=== PATIENT | female | born 1955 | race Caucasian/White ===

== ENCOUNTER 2018-01-12 05:49 | Observation (INO) | payer OTHER ==
[2018-01-12 06:56] LABS: ADD MAN DIFF? NO
[2018-01-12 06:58] LABS: WHITE BLOOD COUNT 5.7 10^3/ul (4.8-10.8)
[2018-01-12 06:58] LABS: BASOPHILS % 0.3 % (0.0-2.0); EOSINOPHILS # 0.1 10^3/ul (0.0-0.5); EOSINOPHILS % 1.7 % (0.0-7.0); HEMATOCRIT 40.1 % (37.0-47.0); HEMOGLOBIN 13.4 g/dl (12.0-16.0); LYMPHOCYTES # 2.2 10^3/ul (0.8-2.9); LYMPHOCYTES % 37.6 % (15.0-51.0); MEAN CORPUSCULAR HEMOGLOBIN 29.4 pg (29.0-33.0); MEAN CORPUSCULAR HGB CONC 33.4 g/dl (32.0-37.0); MEAN CORPUSCULAR VOLUME 87.9 fl (82.0-101.0); MEAN PLATELET VOLUME 10.2 fl (7.4-10.4); MONOCYTE # 0.6 10^3/ul (0.3-0.9); MONOCYTES % 10.8 % (0.0-11.0); NEUTROPHIL # 2.8 10^3/ul (1.6-7.5); NEUTROPHILS % 49.4 % (39.0-77.0); PLATELET COUNT 221 10^3/UL (140-415); RED BLOOD COUNT 4.56 10^6/ul (4.20-5.40); RED CELL DISTRIBUTION WIDTH 13.4 % (11.5-14.5)
[2018-01-12] MEDS: ASPIRIN 81 MG TAB PO (07:15)
[2018-01-12 07:18] LABS: ALANINE AMINOTRANSFERASE 24 IU/L (13-69); ALBUMIN 4.2 g/dl (3.3-4.9); ALBUMIN/GLOBULIN RATIO 1.16; ALKALINE PHOSPHATASE 84 IU/L (42-121); ANION GAP 14 (8-16); ASPARTATE AMINO TRANSFERASE 24 IU/L (15-46); BILIRUBIN,INDIRECT 0.3 mg/dl (0-1.1); BILIRUBIN,TOTAL 0.3 mg/dl (0.2-1.3); BLOOD UREA NITROGEN 13 mg/dl (7-20); CALCIUM 9.1 mg/dl (8.4-10.2); CARBON DIOXIDE 28 mmol/L (21-31); CHLORIDE 104 mmol/L (97-110); CREATININE 0.59 mg/dl (0.44-1.00); GLUCOSE 95 mg/dl (70-220); LIPASE 68 U/L (23-300); POTASSIUM 3.6 mmol/L (3.5-5.1); SODIUM 142 mmol/L (135-144); TOTAL PROTEIN 7.8 g/dl (6.1-8.1)
[2018-01-12 07:29] LABS: B-TYPE NATRIURETIC PEPTIDE 46 PG/ML (0-125); TROPONIN-I < 0.012 ng/ml (0.000-0.120)
[2018-01-12 07:32] LABS: ADD UMIC NO; UR ASCORBIC ACID NEGATIVE (NEGATIVE); UR BACTERIA FEW /HPF (NONE SEEN); UR BILIRUBIN (Dip) NEGATIVE (NEGATIVE); UR BLOOD (Dip) NEGATIVE (NEGATIVE); UR CLARITY SLIGHTLY CLOUDY (CLEAR); UR COLOR YELLOW (YELLOW); UR GLUCOSE (Dip) NEGATIVE (NEGATIVE); UR KETONES (Dip) NEGATIVE (NEGATIVE); UR LEUKOCYTE ESTERASE (Dip) NEGATIVE Leu/ul (NEGATIVE); UR MUCUS FEW /HPF (NONE SEEN); UR NITRITE (Dip) NEGATIVE (NEGATIVE); UR RBC 0 /HPF (0-5); UR SPECIFIC GRAVITY (Dip) 1.017 (1.003-1.030); UR SQUAMOUS EPITHELIAL CELL FEW /HPF (FEW); UR TOTAL PROTEIN (Dip) NEGATIVE (NEGATIVE); UR UROBILINOGEN (Dip) NEGATIVE (NEGATIVE); UR WBC 2 /HPF (0-5)
[2018-01-12] MEDS ORDERED: NITROGLYCERIN (SL) 0.4 MG TAB SL (11:30)
[2018-01-12] MEDS ORDERED: ALBUTEROL/IPRATROPIUM (NEB) 3 ML AMP HHN (11:30)
[2018-01-12] MEDS ORDERED: ONDANSETRON 4 MG INJ IV (11:30)
[2018-01-12] MEDS ORDERED: NACL 0.9% 3 ML SYG IV (11:30)
[2018-01-12] MEDS ORDERED: morphine 2 MG INJ IV (11:30)
[2018-01-12] MEDS: FAMOTIDINE 20 MG TAB PO ×2 (12:18→20:34)
[2018-01-12] MEDS: ACETAMINOPHEN 325 MG TAB PO (12:19)
[2018-01-12 12:54] LABS: CREATINE KINASE 26 IU/L (23-200)
[2018-01-12 13:07] LABS: CK INDEX 0.9; CK-MB 0.23 ng/ml (0.0-2.4); TROPONIN-I < 0.012 ng/ml (0.000-0.120)
[2018-01-12] MEDS: IBUPROFEN 400 MG TAB PO ×2 (15:34→18:00)
[2018-01-12] MEDS: GUAIFENESIN/DM (SR) TAB PO (16:42)
[2018-01-12 18:23] LABS: CREATINE KINASE 33 IU/L (23-200)
[2018-01-12 18:37] LABS: CK INDEX 1.4; CK-MB 0.45 ng/ml (0.0-2.4); TROPONIN-I < 0.012 ng/ml (0.000-0.120)
[2018-01-13] MEDS: CEPASTAT LOZENGE MT ×4 (01:33→15:46)
[2018-01-13] MEDS: IBUPROFEN 400 MG TAB PO ×5 (05:28→23:21)
[2018-01-13 06:47] LABS: ADD MAN DIFF? NO
[2018-01-13 06:55] LABS: BASOPHILS % 0.6 % (0.0-2.0); EOSINOPHILS # 0.3 10^3/ul (0.0-0.5); HEMATOCRIT 39.1 % (37.0-47.0); HEMOGLOBIN 12.9 g/dl (12.0-16.0); LYMPHOCYTES # 2.2 10^3/ul (0.8-2.9); LYMPHOCYTES % 40.3 % (15.0-51.0); MEAN CORPUSCULAR HEMOGLOBIN 29.1 pg (29.0-33.0); MEAN CORPUSCULAR VOLUME 88.1 fl (82.0-101.0); MEAN PLATELET VOLUME 10.2 fl (7.4-10.4); MONOCYTE # 0.6 10^3/ul (0.3-0.9); MONOCYTES % 10.4 % (0.0-11.0); NEUTROPHIL # 2.3 10^3/ul (1.6-7.5); NEUTROPHILS % 43.5 % (39.0-77.0); PLATELET COUNT 230 10^3/UL (140-415); RED BLOOD COUNT 4.44 10^6/ul (4.20-5.40); RED CELL DISTRIBUTION WIDTH 13.3 % (11.5-14.5)
[2018-01-13 06:55] LABS: WHITE BLOOD COUNT 5.4 10^3/ul (4.8-10.8)
[2018-01-13 07:04] LABS: HEMOGLOBIN A1C 5.8 % (0-5.9)
[2018-01-13 07:24] LABS: ANION GAP 11 (8-16); BLOOD UREA NITROGEN 14 mg/dl (7-20); CALCIUM 9.3 mg/dl (8.4-10.2); CARBON DIOXIDE 28 mmol/L (21-31); CHLORIDE 105 mmol/L (97-110); CHOL/HDL RATIO 2.6 RATIO; CHOLESTEROL 180 mg/dl (100-200); CREATININE 0.62 mg/dl (0.44-1.00); GLUCOSE 86 mg/dl (70-220); HDL CHOLESTEROL 68 mg/dl (35-98); LDL CHOLESTEROL,CALCULATED 97 mg/dl; MAGNESIUM 1.9 mg/dl (1.7-2.5); POTASSIUM 4.4 mmol/L (3.5-5.1); SODIUM 140 mmol/L (135-144); TRIGLYCERIDES 77 mg/dl (0-149)
[2018-01-13] MEDS: LOSARTAN 25 MG TAB PO (08:11)
[2018-01-13] MEDS: GUAIFENESIN/DM (SR) TAB PO (08:11)
[2018-01-13] MEDS: FAMOTIDINE 20 MG TAB PO ×2 (08:11→20:48)
[2018-01-13] MEDS: ASPIRIN 81 MG TAB PO (08:11)
[2018-01-13] MEDS: AMOXICILLIN 500 MG CAP PO ×2 (18:32→20:48)
[2018-01-14] MEDS: IBUPROFEN 400 MG TAB PO (05:41)
[2018-01-14] MEDS: GUAIFENESIN/DM (SR) TAB PO (09:36)
[2018-01-14] MEDS: LOSARTAN 25 MG TAB PO (09:37)
[2018-01-14] MEDS: AMOXICILLIN 500 MG CAP PO (09:37)
[2018-01-14] MEDS: ASPIRIN 81 MG TAB PO (09:37)
[2018-01-14] MEDS: FAMOTIDINE 20 MG TAB PO (09:37)
== END 2018-01-14 14:18 | disposition home or self-care (01) ==
LOC: E/R 05:49 → TEL 08:12
DX: R07.9 Chest pain, unspecified (principal); J02.0 Streptococcal pharyngitis; I10 Essential (primary) hypertension
CPT/HCPCS: 36415; 71045; 80048; 80053; 80061; 81001; 81003; 82550; 82553; 83036; 83690; 83735; 83880; 84100; 84443; 84484; 85025; 87400; 87880; 92610; 93005; 93306; 99285-25; G0378

== ENCOUNTER 2019-01-26 12:06 | Inpatient (IN) | payer OTHER ==
[2019-01-26 12:34] LABS: ADD MAN DIFF? NO; BASOPHILS % 0.5 % (0.0-2.0); EOSINOPHILS % 0.2 % (0.0-7.0); HEMATOCRIT 38.1 % (37.0-47.0); HEMOGLOBIN 12.6 g/dl (12.0-16.0); LYMPHOCYTES # 2.3 10^3/ul (0.8-2.9); LYMPHOCYTES % 26.7 % (15.0-51.0); MEAN CORPUSCULAR HEMOGLOBIN 29.3 pg (29.0-33.0); MEAN CORPUSCULAR HGB CONC 33.1 g/dl (32.0-37.0); MEAN CORPUSCULAR VOLUME 88.6 fl (82.0-101.0); MEAN PLATELET VOLUME 9.8 fl (7.4-10.4); MONOCYTE # 0.5 10^3/ul (0.3-0.9); MONOCYTES % 5.3 % (0.0-11.0); NEUTROPHIL # 5.7 10^3/ul (1.6-7.5); NEUTROPHILS % 67.1 % (39.0-77.0); PLATELET COUNT 262 10^3/UL (140-415); RED CELL DISTRIBUTION WIDTH 13.4 % (11.5-14.5)
[2019-01-26 12:34] LABS: WHITE BLOOD COUNT 8.5 10^3/ul (4.8-10.8)
[2019-01-26] MEDS: IOHEXOL 350MG/ML 50 ML BTL (12:45)
[2019-01-26] MEDS: IOHEXOL 100 ML (12:45)
[2019-01-26] MEDS: SOD CHLORIDE 0.9% 100 ML (12:45)
[2019-01-26 12:46] LABS: ANION GAP 10 (5-13); BLOOD UREA NITROGEN 15 mg/dl (7-20); CALCIUM 9.4 mg/dl (8.4-10.2); CARBON DIOXIDE 23 mmol/L (21-31); CHLORIDE 104 mmol/L (97-110); CHOL/HDL RATIO 2.4 RATIO; CHOLESTEROL 234 mg/dl (100-200); CREATINE KINASE 50 IU/L (23-200); CREATININE 0.53 mg/dl (0.44-1.00); Estimated GFR > 60 mL/min (>60); GLUCOSE 137 mg/dl (70-220); HDL CHOLESTEROL 94 mg/dl (35-98); LDL CHOLESTEROL,CALCULATED 123 mg/dl; POTASSIUM 3.6 mmol/L (3.5-5.1); SODIUM 137 mmol/L (135-144); TRIGLYCERIDES 85 mg/dl (0-149)
[2019-01-26 12:49] LABS: HEMOGLOBIN A1C 5.4 % (0-5.9)
[2019-01-26 12:50] LABS: INR 0.89; PROTIME 12.1 Sec (11.9-14.9); PT RATIO 0.9
[2019-01-26 12:51] LABS: PARTIAL THROMBOPLASTIN TIME 22.5 Sec (23.0-35.0)
[2019-01-26 12:56] LABS: ETHANOL < 10.0 mg/dl (0-0)
[2019-01-26 12:58] LABS: CK INDEX 2.1; CK-MB 1.03 ng/ml (0.0-2.4); TROPONIN-I < 0.012 ng/ml (0.000-0.120)
[2019-01-26 14:04] LABS: LIPASE 43 U/L (23-300)
[2019-01-26 14:12] LABS: AMPHETAMINE/METHAMPHETAMINE Negative (NEGATIVE); BARBITURATES Negative (NEGATIVE); BENZODIAZEPINES Negative (NEGATIVE); CANNABINOIDS Negative (NEGATIVE); COCAINE Negative (NEGATIVE); OPIATES Negative (NEGATIVE)
[2019-01-26 14:20] LABS: ADD UMIC NO; UR ASCORBIC ACID NEGATIVE (NEGATIVE); UR BILIRUBIN (Dip) NEGATIVE (NEGATIVE); UR BLOOD (Dip) NEGATIVE (NEGATIVE); UR CLARITY CLEAR (CLEAR); UR COLOR STRAW (YELLOW); UR GLUCOSE (Dip) NEGATIVE (NEGATIVE); UR KETONES (Dip) 1+ mg/dL (NEGATIVE); UR LEUKOCYTE ESTERASE (Dip) NEGATIVE Leu/ul (NEGATIVE); UR NITRITE (Dip) NEGATIVE (NEGATIVE); UR SPECIFIC GRAVITY (Dip) 1.054 (1.003-1.030); UR TOTAL PROTEIN (Dip) NEGATIVE (NEGATIVE); UR UROBILINOGEN (Dip) NEGATIVE (NEGATIVE)
[2019-01-26] MEDS ORDERED: HYDROCODONE/APAP (5/325) TAB PO (16:30)
[2019-01-26] MEDS ORDERED: DOCUSATE SODIUM 100 MG CAP PO (16:30)
[2019-01-26] MEDS ORDERED: ACETAMINOPHEN 325 MG TAB PO ×2 (16:30→17:00)
[2019-01-26] MEDS ORDERED: morphine 2 MG INJ IV (16:30)
[2019-01-26] MEDS ORDERED: NACL 0.9% 3 ML SYG IV (16:30)
[2019-01-26] MEDS ORDERED: ONDANSETRON 4 MG INJ IV (17:00)
[2019-01-26 18:07] LABS: CREATINE KINASE 50 IU/L (23-200)
[2019-01-26 18:21] LABS: CK INDEX 1.5; CK-MB 0.75 ng/ml (0.0-2.4); TROPONIN-I < 0.012 ng/ml (0.000-0.120)
[2019-01-26] MEDS: ONDANSETRON 4 MG INJ IV (21:00)
[2019-01-26] MEDS: FAMOTIDINE 20 MG TAB PO (21:00)
[2019-01-26] MEDS: HEPARIN 5,000 UNIT/1 ML VIAL SC (21:31)
[2019-01-26 22:45] LABS: CREATINE KINASE 47 IU/L (23-200)
[2019-01-26 22:58] LABS: CK INDEX 1.7; CK-MB 0.81 ng/ml (0.0-2.4); TROPONIN-I < 0.012 ng/ml (0.000-0.120)
[2019-01-27 06:51] LABS: ADD MAN DIFF? NO
[2019-01-27 07:01] LABS: BASOPHILS % 0.7 % (0.0-2.0); EOSINOPHILS % 0.7 % (0.0-7.0); HEMATOCRIT 38.3 % (37.0-47.0); HEMOGLOBIN 12.7 g/dl (12.0-16.0); LYMPHOCYTES # 2.1 10^3/ul (0.8-2.9); LYMPHOCYTES % 35.2 % (15.0-51.0); MEAN CORPUSCULAR HEMOGLOBIN 29.4 pg (29.0-33.0); MEAN CORPUSCULAR HGB CONC 33.2 g/dl (32.0-37.0); MEAN CORPUSCULAR VOLUME 88.7 fl (82.0-101.0); MEAN PLATELET VOLUME 9.8 fl (7.4-10.4); MONOCYTE # 0.4 10^3/ul (0.3-0.9); MONOCYTES % 6.4 % (0.0-11.0); NEUTROPHIL # 3.5 10^3/ul (1.6-7.5); NEUTROPHILS % 56.7 % (39.0-77.0); PLATELET COUNT 245 10^3/UL (140-415); RED BLOOD COUNT 4.32 10^6/ul (4.20-5.40); RED CELL DISTRIBUTION WIDTH 13.6 % (11.5-14.5)
[2019-01-27 07:01] LABS: WHITE BLOOD COUNT 6.1 10^3/ul (4.8-10.8)
[2019-01-27 07:21] LABS: ALANINE AMINOTRANSFERASE 28 IU/L (13-69); ALBUMIN 3.8 g/dl (3.3-4.9); ALBUMIN/GLOBULIN RATIO 1.31; ALKALINE PHOSPHATASE 72 IU/L (42-121); ANION GAP 5 (5-13); ASPARTATE AMINO TRANSFERASE 23 IU/L (15-46); BILIRUBIN,INDIRECT 0.6 mg/dl (0-1.1); BILIRUBIN,TOTAL 0.6 mg/dl (0.2-1.3); BLOOD UREA NITROGEN 14 mg/dl (7-20); CALCIUM 9.5 mg/dl (8.4-10.2); CARBON DIOXIDE 30 mmol/L (21-31); CHLORIDE 103 mmol/L (97-110); CHOL/HDL RATIO 2.1 RATIO; CHOLESTEROL 202 mg/dl (100-200); CREATININE 0.69 mg/dl (0.44-1.00); Estimated GFR > 60 mL/min (>60); GLUCOSE 89 mg/dl (70-220); HDL CHOLESTEROL 94 mg/dl (35-98); LDL CHOLESTEROL,CALCULATED 91 mg/dl; PHOSPHORUS 4.1 mg/dl (2.5-4.9); POTASSIUM 4.3 mmol/L (3.5-5.1); SODIUM 138 mmol/L (135-144); TOTAL PROTEIN 6.7 g/dl (6.1-8.1); TRIGLYCERIDES 85 mg/dl (0-149)
[2019-01-27 07:38] LABS: FREE THYROXINE INDEX (Calc) 3.21 ug/ml (0.65-3.89); T3 UPTAKE 33.1 % (23.5-40.5); T4 (THYROXINE) 9.7 ug/dl (5.5-11.0)
[2019-01-27 07:53] LABS: THYROID STIMULATING HORMONE 0.557 MIU/L (0.465-4.680)
[2019-01-27 07:56] LABS: HEMOGLOBIN A1C 5.4 % (0-5.9)
[2019-01-27] MEDS: ASPIRIN 81 MG TAB PO (08:38)
[2019-01-27] MEDS: LOSARTAN 25 MG TAB PO (08:38)
[2019-01-27] MEDS: FAMOTIDINE 20 MG TAB PO ×2 (08:38→20:50)
[2019-01-27] MEDS: HEPARIN 5,000 UNIT/1 ML VIAL SC ×2 (08:44→20:54)
[2019-01-27 08:52] LABS: ERYTHROCYTE SEDIMENTATION RATE 7 mm/Hr (0-30)
[2019-01-27 15:21] LABS: RAPID PLASMA REAGIN NONREACTIVE (NR)
[2019-01-27] MEDS: CLOPIDOGREL 75 MG TAB PO (17:02)
[2019-01-27] MEDS: ATORVASTATIN 40 MG TAB PO (20:50)
[2019-01-27] MEDS: ONDANSETRON 4 MG INJ IV (21:42)
[2019-01-28] MEDS: ASPIRIN 81 MG TAB PO (08:32)
[2019-01-28] MEDS: LOSARTAN 25 MG TAB PO (08:32)
[2019-01-28] MEDS: CLOPIDOGREL 75 MG TAB PO (08:32)
[2019-01-28] MEDS: FAMOTIDINE 20 MG TAB PO (08:32)
[2019-01-28] MEDS: HEPARIN 5,000 UNIT/1 ML VIAL SC (08:47)
== END 2019-01-28 20:09 | disposition home health service (06) | DRG 948 ==
LOC: E/R 12:06 → TEL 16:59
DX: R53.1 Weakness (principal); I69.351 Hemiplegia and hemiparesis following cerebral infarction affecting right dominant side; R07.9 Chest pain, unspecified; I10 Essential (primary) hypertension; R10.9 Unspecified abdominal pain; Z79.82 Long term (current) use of aspirin; Z79.02 Long term (current) use of antithrombotics/antiplatelets
CPT/HCPCS: 36415; 70450; 70496; 70498; 71045; 74176; 80048; 80053; 80061; 80307; 81003; 82550; 82553; 82962; 83036; 83690; 83735; 84100; 84436; 84443; 84479; 84484; 85025; 85610; 85651; 85730; 86592; 92526; 92610; 93005; 93306; 97116; 97162; 97167; 99285-25